=== PATIENT | female | born 1945 | race Caucasian/White ===

== ENCOUNTER 2017-06-09 08:26 | Day surgery (SDC) | payer OTHER ==
[~2017-06-09] VITALS: Ht 170.2 cm; Wt 69.6 kg
[~2017-06-09 08:26] MED LIST: ASPI81CH; CHOL10002; FAMO20; Vitamin B Comple1 EA PO
== END 2017-06-09 10:32 | disposition home or self-care (01) ==
LOC: ORSCSDS 08:26
PROVIDERS: Ophthalmology
PROC: 08RJ3JZ Replacement of Right Lens with Synthetic Substitute, Percutaneous Approach (ICD-10-PCS; principal; 2017-06-09 10:00)
DX: H25.11 Age-related nuclear cataract, right eye (principal); I10 Essential (primary) hypertension; Z79.82 Long term (current) use of aspirin; Z79.899 Other long term (current) drug therapy
CPT/HCPCS: J2250; J3010; J3301; J7040; V2632

== ENCOUNTER 2017-06-15 09:33 | Day surgery (SDC) | payer OTHER | END 2017-06-15 23:05 | disposition home or self-care (01) | LOC: MOI MAM 09:33 → MOI US 10:00 → MOI MAM 10:15 → MOI US 10:15 → MOI MAM 23:05 | PROC: BH01ZZZ Plain Radiography of Left Breast (ICD-10-PCS; principal; 2017-06-15) | DX: N63.22 Unspecified lump in the left breast, upper inner quadrant (principal) | CPT/HCPCS: 19281 ==

== ENCOUNTER 2017-06-22 07:52 | Day surgery (SDC) | payer OTHER ==
[~2017-06-22] VITALS: Ht 167.6 cm; Wt 70.3 kg
[2017-06-22] MEDS ORDERED: TUMS200 MG PO (08:23)
== END 2017-06-22 22:51 | disposition home or self-care (01) ==
LOC: MOI MAM 07:52 → ORSCMMR 07:52 → RAD 07:52 → MOI MAM 07:53 → ORSCMMR 07:53 → RAD 08:00 → ORSCMMR 22:51
PROVIDERS: Surgery
PROC: 0HBU0ZX Excision of Left Breast, Open Approach, Diagnostic (ICD-10-PCS; principal; 2017-06-22 09:15)
DX: N63.22 Unspecified lump in the left breast, upper inner quadrant (principal); N63.21 Unspecified lump in the left breast, upper outer quadrant; I10 Essential (primary) hypertension; K21.9 Gastro-esophageal reflux disease without esophagitis; Z79.82 Long term (current) use of aspirin; Z79.899 Other long term (current) drug therapy
CPT/HCPCS: 88307; 93005; 93010; J0690; J1100; J1885; J2250; J2405; J3010; J7120

== ENCOUNTER 2017-07-14 07:25 | Day surgery (SDC) | payer OTHER ==
[~2017-07-14] VITALS: Ht 170.2 cm; Wt 69.6 kg
[~2017-07-14 07:25] MED LIST changes: +TUMS200 MG PO
== END 2017-07-14 09:19 | disposition home or self-care (01) ==
LOC: ORSCSDS 07:25
PROVIDERS: Ophthalmology
PROC: 08RK3JZ Replacement of Left Lens with Synthetic Substitute, Percutaneous Approach (ICD-10-PCS; principal; 2017-07-14 09:00)
DX: H25.12 Age-related nuclear cataract, left eye (principal); K21.9 Gastro-esophageal reflux disease without esophagitis; Z79.899 Other long term (current) drug therapy; Z79.82 Long term (current) use of aspirin
CPT/HCPCS: J2250; J3010; J3301; V2632